=== PATIENT | male | born 1985 | race Asian ===

== ENCOUNTER → 2020-06-11 13:46 | Outpatient (CLI) | payer OTHER, SELFPAY ==
[2020-06-11 15:14] LABS: COVID19 -Nasal RAPID Negative (Negative)
== END ==
PROVIDERS: Visit Provider Family Medicine Sleep Medicine
DX: Z20.822 Contact with and (suspected) exposure to COVID-19 (principal)
CPT/HCPCS: 87635; C9803

== ENCOUNTER → 2020-07-27 14:37 | Outpatient (CLI) | payer OTHER, SELFPAY ==
[2020-07-27 15:45] LABS: COVID19 -Nasal RAPID Negative (Negative)
== END ==
PROVIDERS: Visit Provider Family Medicine Sleep Medicine
DX: Z20.822 Contact with and (suspected) exposure to COVID-19 (principal)
CPT/HCPCS: 87635; C9803

== ENCOUNTER → 2020-08-16 13:20 | Outpatient (CLI) | payer OTHER, SELFPAY ==
--- NOTE | 2020-08-16 13:22 | DI.MRI.S_ITS ---
PROCEDURE: MR SHOULDER LT WO CON INDICATIONS: Pain in unspecified shoulder TECHNIQUE: Noncontrast oblique coronal T2 fast spin echo with fat saturation, oblique sagittal T1 spin echo and T2 fast spin echo with fat saturation, axial T1 spin echo and T2 fast spin echo with fat saturation through the shoulder. COMPARISON: None. FINDINGS: Image quality: Excellent. Rotator cuff: There is a low-grade, partial, interstitial tear of the supraspinatus tendon at the humeral attachment (series 7, image 10; series 6 image 10). The supraspinatus and infraspinatus tendons are thickened with slightly increased internal signal compatible with tendinosis. The infraspinatus, and subscapularis tendons appear intact throughout. Sagittal images demonstrate no muscle atrophy. Bones and bursae: No bone marrow contusions or fractures. No acromioclavicular joint degeneration. The acromion demonstrates conventional anatomy, without an os acromiale. Fluid noted in the subacromial/subdeltoid bursa compatible with bursitis. Capsule and soft tissues: Labrum is intact. The long head of the biceps tendon demonstrates normal location and morphology. The rotator interval appears normal, without fibrosis. The coracohumeral ligament is normal in thickness. IMPRESSION: 1. Low-grade, partial, interstitial tear of the supraspinatus tendon. 2. Mild supraspinatus and infraspinatus tendinosis. 3. Mild subacromial/subdeltoid bursitis. Dictated by: Eileen Mclaughlin MD, PhD on 08/16/2020 at 15:16 Approved by: Eileen Mclaughlin MD, PhD on 08/17/2020 at 15:51
== END ==
PROVIDERS: PCP Nurse Practitioner Family; Referring Provider Nurse Practitioner Family; Visit Provider Nurse Practitioner Family
DX: M25.512 Pain in left shoulder (principal); M75.112 Incomplete rotator cuff tear or rupture of left shoulder, not specified as traumatic; M75.52 Bursitis of left shoulder
CPT/HCPCS: 73221